=== PATIENT | female | born 1970 ===

== ENCOUNTER 2017-09-23 07:29 | Outpatient (CLI) | payer OTHER ==
[~2017-09-23] VITALS: Ht 170.2 cm; Wt 74.8 kg
[2017-09-23] MEDS ORDERED: ZANTAC300 MG PO (09:16)
[2017-09-23] MEDS ORDERED: OMEPRAZOLE40 MG PO (09:16)
== END 2017-09-23 07:45 | disposition home or self-care (01) ==
LOC: OFIC 805 07:29
DX: J31.0 Chronic rhinitis (principal); J37.0 Chronic laryngitis; R05 Cough; H61.22 Impacted cerumen, left ear; K21.9 Gastro-esophageal reflux disease without esophagitis